=== PATIENT | female | born 1990 | race American Indian/Alaskan Native ===

== ENCOUNTER 2017-08-06 19:51 | Emergency (ER) | payer SELFPAY ==
[2017-08-06 20:34] LABS: Basophils # (Auto) 0.1 K/mm3 (0.0-0.1); Basophils % (Auto) 0.8 % (0.0-1.8); Eosinophils # (Auto) 0.1 K/mm3 (0.0-0.4); Eosinophils % (Auto) 1.6 % (0.0-4.3); Hematocrit 36.9 % (30.3-42.9); Hemoglobin 12.7 gm/dl (10.1-14.3); Lymphocytes # (Auto) 2.3 K/mm3 (1.2-5.4); Lymphocytes % (Auto) 33.9 % (13.4-35.0); Mean Corpuscular HGB Conc 34 % (30-34); Mean Corpuscular Hemoglobin 30 pg (28-32); Mean Corpuscular Volume 87 fl (79-97); Monocytes # (Auto) 0.4 K/mm3 (0.0-0.8); Monocytes % (Auto) 6.7 % (0.0-7.3); Platelet Count 210 K/mm3 (140-440); Red Blood Count 4.25 M/mm3 (3.65-5.03); Red Cell Distribution Width 13.6 % (13.2-15.2)
[2017-08-06 22:03] LABS: Bilirubin,Urine NEG (Negative); Blood,Urine LG (Negative); Color,Urine Red (Yellow); Urobilinogen,Urine < 2.0 mg/dL (<2.0)
[2017-08-06 22:04] LABS: RBC,Urine > 182.0 /HPF (0.0-6.0); WBC,Urine > 182.0 /HPF (0.0-6.0)
[2017-08-07 01:58] VITALS: BP 119/74
--- NOTE | 2017-08-07 02:23 | Emergency Department Report ---
ED Female HPI - General Chief complaint: Vaginal Bleeding Stated complaint: VAGINAL BLEEDING Time Seen by Provider: 08/07/17 02:14 Source: patient Mode of arrival: Ambulatory Limitations: No Limitations - History of Present Illness Initial comments: 27-year-old woman presents with vaginal bleeding onset today, approximately 8 hours prior to arrival. Onset was spontaneous, and she has used approximately 3 pads total. She has not had any fever chills or diaphoresis, denies flank pain or back pain. She had 1 episode of vaginal bleeding years ago, but this was associated with a spontaneous . She has had a tubal ligation, and does not feel like she is . She has not had any falls or injuries otherwise. She denies dysuria, no fever chills or diaphoresis. Health is good otherwise. MD Complaint: vaginal bleeding -: Sudden, This evening (8 hours earlier) Location: suprapubic, LLQ Radiation: non-radiating Severity: moderate Quality: dull, aching Consistency: constant Improves with: none Worsens with: none Are you Now?: No Last Menstrual Period: 07/20/17 (data proximal) EDC: 04/26/18 - Related Data Sexually active: Yes Previous Rx's Medication Instructions Recorded Last Taken Type HYDROcodone/APAP 5-325 [[place] 1 each PO Q6HR PRN #10 tablet 08/07/17 Unknown Rx 5/325] Sulfamethoxazole/Trimethoprim 1 each PO BID #14 tablet 08/07/17 Unknown Rx [Bactrim DS TAB] medroxyPROGESTERone ACETATE 10 mg PO QDAY #5 tablet 08/07/17 Unknown Rx [Provera] Allergies Allergy/AdvReac Type Severity Reaction Status Date / Time No Known Allergies Allergy Verified 08/07/17 03:24 ED Review of Systems ROS: Stated complaint: VAGINAL BLEEDING Other details as noted in HPI Comment: All other systems reviewed and negative Constitutional: no symptoms reported ENT: denies: ear pain, throat pain Respiratory: denies: cough, shortness of breath, wheezing Cardiovascular: denies: chest pain, palpitations Endocrine: no symptoms reported Gastrointestinal: denies: abdominal pain, nausea, vomiting, diarrhea Genitourinary: denies: urgency, dysuria, frequency, hematuria Musculoskeletal: denies: back pain, joint swelling, arthralgia Skin: denies: rash, lesions Neurological: denies: headache, weakness, paresthesias Psychiatric: denies: anxiety, depression ED Past Medical Hx - Past Medical History Previous Medical History?: No - Surgical History Past Surgical History?: Yes Additional Surgical History: X3 - Social History Smoking Status: Never Smoker Substance Use Type: None - Medications Home Medications: Home Medications Medication Instructions Recorded Confirmed Last Taken Type HYDROcodone/APAP 5-325 [[place] 1 each PO Q6HR PRN #10 tablet 08/07/17 Unknown Rx 5/325] Sulfamethoxazole/Trimethoprim 1 each PO BID #14 tablet 08/07/17 Unknown Rx [Bactrim DS TAB] medroxyPROGESTERone ACETATE 10 mg PO QDAY #5 tablet 08/07/17 Unknown Rx [Provera] ED Physical Exam - General Limitations: No Limitations General appearance: in no apparent distress - Head Head exam: Present: atraumatic - Eye Eye exam: Present: normal appearance, PERRL - ENT ENT exam: Present: normal exam - Neck Neck exam: Present: normal inspection - Cardiovascular Cardiovascular Exam: Present: regular rate, normal heart sounds - GI/Abdominal GI/Abdominal exam: Present: soft, tenderness (mild tenderness left lower quadrant, suprapubic area), normal bowel sounds. Absent: guarding, rebound, rigid - Rectal Rectal exam: Present: deferred - Back Exam Back exam: Present: normal inspection ED Course Vital Signs 08/06/17 08/06/17 08/07/17 19:58 20:05 01:57 Temperature 98.3 F 98.3 F Pulse Rate 52 L 52 L 54 L Respiratory 16 16 16 Rate Blood Pressure 131/70 131/70 Blood Pressure 119/74 [Left] O2 Sat by Pulse 98 98 99 Oximetry 08/07/17 01:59 Temperature Pulse Rate Respiratory 16 Rate Blood Pressure Blood Pressure [Left] O2 Sat by Pulse 99 Oximetry ED Medical Decision Making - Lab Data Result diagrams: 08/06/17 20:12 - Medical Decision Making Patient has acute onset of vaginal bleeding, with negative test, and good general health. This is likely differential uterine bleeding, will be treated with medroxyprogesterone acetate, and and patient will try to follow up with locker room clerk, preferring not to have ultrasound examination at this time. She also has a urinary tract infection and this will be treated with Bactrim. Analgesics also provided for mild discomfort. - Differential Diagnosis urinary tract infection with hematuria, dysfunctional uterine bleeding, lei Critical Care Time: No Critical care attestation.: If time is entered above; I have spent that time in minutes in the direct care of this critically ill patient, excluding procedure time. ED Disposition Clinical Impression: Vaginal bleeding, abnormal Urinary tract infection Qualifiers: Urinary tract infection type: acute cystitis Disposition: TO HOME OR SELFCARE Is pt being admited?: No Does the pt Need Aspirin: No Condition: Stable Instructions: Dysfunctional Uterine Bleeding (ED), Urinary Tract Infection in Women (ED) Additional Instructions: We are treating the bleeding with hormonal control, medroxyprogesterone, to be taken daily for the next 5 days. Have repeat examination with locker room clerk within the next 3-5 days. Return to the emergency department if he get much worse in the meantime. Prescriptions: HYDROcodone/APAP 5-325 [[place] 5/325] 1 each PO Q6HR PRN #10 tablet PRN Reason: Pain medroxyPROGESTERone ACETATE [Provera] 10 mg PO QDAY #5 tablet Sulfamethoxazole/Trimethoprim [Bactrim DS TAB] 1 each PO BID #14 tablet Referrals: PRIMARY CARE, [Primary Care Provider] - 3-5 Days PAUL THOMAS DRILL PRESSER [Advanced Practice Nurse] - 3-5 Days MARIO MENA MD [Staff Physician] - 3-5 Days Time of Disposition: 03:25
[2017-08-07] MEDS ORDERED: PROVERA PO SCH ×2 (03:31→10:00)
== END 2017-08-07 04:00 | disposition home or self-care (01) ==
LOC: ED 19:51
DX: N30.00 Acute cystitis without hematuria (principal); N93.9 Abnormal uterine and vaginal bleeding, unspecified; R79.89 Other specified abnormal findings of blood chemistry; Z98.51 Tubal ligation status
CPT/HCPCS: 36415; 81001; 82962; 84703; 85025; 86850; 86900; 86901; 99283

== ENCOUNTER 2020-07-01 08:32 | Emergency (ER) | payer MEDICAID ==
[2020-07-01] MEDS ORDERED: IBUPROFEN 400 MG TAB PO ONE ×2 (09:28→09:34)
[2020-07-01] MEDS ORDERED: ACETAMINOPHEN 325 MG TAB PO ONE (09:28)
--- NOTE | 2020-07-01 09:28 | Emergency Department Report ---
ED General Adult HPI - General Chief complaint: Earache Stated complaint: EAR PAIN PUI?: No Time Seen by Provider: 07/01/20 09:16 Source: patient, RN notes reviewed Mode of arrival: Ambulatory Limitations: No Limitations - History of Present Illness Initial comments: The patient was evaluated in the emergency department for symptoms described in the history of present illness. He/she was evaluated in the context of the global COVID-19 pandemic, which necessitated consideration that the patient might be at risk for infection with the virus that causes COVID-19. Institutional protocols and algorithms that pertain to the evaluation of patients at risk for COVID-19 are in a state of rapid change based on information released by regulatory bodies including the CDC and federal and state organizations. These policies and algorithms were followed during the patient's care in the emergency department. Please note that these policies, procedures and recommendations changed on a rapid basis. During the history and physical examination, I am chaperoned by ER field associate Mindy Herrera The patient is a 30-year-old female. She is not known to myself previously. She states that she is not . She presents to the ER with left external auditory canal pain, and bleeding. She thinks that she may have scratched the ear with one of her very long artificial nails. She also typically cleans her ears with wax. She denies other blunt and sudden head trauma, and denies all additional injuries and complaints. She specifically denies sudden thunderclap headache, neck pain, loss of vision, dizziness, ataxia. Her symptoms are much improved in the emergency room with Tylenol and ibuprofen. She had some anxiety initially, which is now resolved. -: Sudden Severity scale (0 -10): 10 Quality: aching Consistency: constant Improves with: medication Worsens with: movement (Palpation) - Related Data Previous Rx's Medication Instructions Recorded Last Taken Type Sulfamethoxazole/Trimethoprim 1 each PO BID #14 tablet 08/07/17 Unknown Rx [Bactrim DS TAB] medroxyPROGESTERone ACETATE 10 mg PO QDAY #5 tablet 08/07/17 Unknown Rx [Provera] Ciprofloxacin HCl/Dexameth 1 drop BID 5 Days #7.5 ml 07/01/20 Unknown Rx [Ciprodex Otic Suspension] Allergies Allergy/AdvReac Type Severity Reaction Status Date / Time No Known Allergies Allergy Verified 08/07/17 03:24 ED Review of Systems ROS: Stated complaint: EAR PAIN Other details as noted in HPI Constitutional: denies: fever Eyes: denies: eye discharge ENT: ear pain. denies: dental pain, hearing loss, epistaxis, congestion Respiratory: denies: cough Cardiovascular: denies: chest pain Gastrointestinal: denies: abdominal pain Neurological: headache Psychiatric: anxiety ED Past Medical Hx - Past Medical History Previous Medical History?: Yes Additional medical history: Report had a diagnosis of "borderline diabetes" - Surgical History Past Surgical History?: Yes Additional Surgical History: X3 - Social History Smoking Status: Never Smoker Substance Use Type: None - Medications Home Medications: Home Medications Medication Instructions Recorded Confirmed Last Taken Type Sulfamethoxazole/Trimethoprim 1 each PO BID #14 tablet 08/07/17 Unknown Rx [Bactrim DS TAB] medroxyPROGESTERone ACETATE 10 mg PO QDAY #5 tablet 08/07/17 Unknown Rx [Provera] Ciprofloxacin HCl/Dexameth 1 drop BID 5 Days #7.5 ml 07/01/20 Unknown Rx [Ciprodex Otic Suspension] ED Physical Exam - General Limitations: No Limitations General appearance: alert, anxious - Head Head exam: Present: atraumatic, normocephalic - Eye Eye exam: Present: normal appearance, PERRL, EOMI, nystagmus - ENT ENT exam: Present: normal exam, normal orophraynx, mucous membranes moist, nor mal external ear exam, other (There is no mastoid tenderness. The helix is nontender. The tragus is nontender. Erythematous/macerated tissue noted on the inferior aspect of the left external auditory canal. There is a small left- sided tympanic membrane effusion.) - Neck Neck exam: Present: normal inspection, full ROM. Absent: tenderness, meningismus, lymphadenopathy - Respiratory Respiratory exam: Present: normal lung sounds bilaterally. Absent: respiratory distress - Cardiovascular Cardiovascular Exam: Present: regular rate, normal rhythm, normal heart sounds. Absent: bradycardia, tachycardia, irregular rhythm, systolic murmur, diastolic murmur, rubs, gallop - GI/Abdominal GI/Abdominal exam: Present: soft. Absent: distended, tenderness, guarding, rebound, rigid, pulsatile mass - Extremities Exam Extremities exam: Present: normal inspection, full ROM, other (2+ pulses noted in the bilateral upper and lower extremities. There is no palpable cord. negative Homans sign. Muscular compartments are soft. The pelvis is stable.). Absent: pedal edema, calf tenderness - Back Exam Back exam: Present: normal inspection, full ROM. Absent: tenderness, CVA tenderness (R), CVA tenderness (L), paraspinal tenderness, vertebral tenderness - Neurological Exam Neurological exam: Present: alert, other (2+ pulses noted in the bilateral upper and lower extremities. There is no palpable cord. negative Homans sign. Muscular compartments are soft. The pelvis is stable.). Absent: motor sensory deficit - Psychiatric Psychiatric exam: Present: anxious - Skin Skin exam: Present: warm, dry, intact, normal color. Absent: rash ED Course Vital Signs 07/01/20 07/01/20 07/01/20 08:54 09:07 09:12 Temperature 98.9 F Pulse Rate 68 66 Respiratory 16 18 16 Rate Blood Pressure 134/64 Blood Pressure 107/70 [Left] O2 Sat by Pulse 97 99 Oximetry 07/01/20 10:03 Temperature Pulse Rate 52 L Respiratory 16 Rate Blood Pressure Blood Pressure 106/58 [Left] O2 Sat by Pulse 98 Oximetry ED Medical Decision Making - Lab Data Vital Signs 07/01/20 07/01/20 07/01/20 08:54 09:07 09:12 Temperature 98.9 F Pulse Rate 68 66 Respiratory 16 18 16 Rate Blood Pressure 134/64 Blood Pressure 107/70 [Left] O2 Sat by Pulse 97 99 Oximetry 07/01/20 10:03 Temperature Pulse Rate 52 L Respiratory 16 Rate Blood Pressure Blood Pressure 106/58 [Left] O2 Sat by Pulse 98 Oximetry - Medical Decision Making Differential diagnosis, including but not limited to: External auditory canal skin maceration, EAC chemical irritation, EAC mechanical irritation Assessment and plan: 30-year-old female with left external auditory canal maceration and minimal bleeding, in the context of scratching her ear canal with a long artificial nail, and using Q-tips at home. She denies sudden thunderclap headache and neck pain. She felt improved with Tylenol and ibuprofen, and is currently playing on her cellular phone. Patient advised to not clean ear canals with Q-tips, she should use mineral oil instead, and she is also counseled to be mindful of scratching her ears with her long nails. At the moment, she is resting comfortably in no acute distress, and suitable for discharge Critical care attestation.: If time is entered above; I have spent that time in minutes in the direct care of this critically ill patient, excluding procedure time. ED Disposition Clinical Impression: Auditory canal wound Qualifiers: Encounter type: initial encounter Laterality: left Qualified Code(s): S01.302A - Unspecified open wound of left ear, initial encounter Disposition: DC-01 TO HOME OR SELFCARE Is pt being admited?: No Does the pt Need Aspirin: No Condition: Stable Instructions: Skin Tear Additional Instructions: Please take care to not scratch or wound to the ears with long fingernails or sharp objects. In addition, recommend that ears not be cleaned with Q-tips. Recommend cleaning ears with minimal oil. We also recommend warm compresses as often as as needed for pain, patient may also take ibuprofen, 400 mg by mouth, with food, every 6 hours as needed for pain, alternating with Tylenol/acetaminophen, 650 mg by mouth, every 4-6 hours as needed for pain. Please follow-up with your primary care doctor or ENT physician for repeat checkup and evaluation within the next 7 to 10 days. For the patient's convenience, we have listed a local primary care doctor, Dr. Angy Anderson, and a local ENT physician, Dr. Jamie Veloz, patient may follow-up with either these individuals. Please return to the emergency room right away with new pain, worsened pain, migration of pain, projectile vomiting, change in mental status, confusion, inability to tolerate liquid feeds, new, worsened or different symptoms not present on the initial emergency room evaluation. Referrals: LAINEY FAIRCHILD MD [Referring] - 3-5 Days QUITA ANDERSON MD [Staff Physician] - 3-5 Days Forms: Work/School Release Form(ED)
[2020-07-01] MEDS ORDERED: ACETAMINOPHEN 325 MG TAB ONE (09:33)
[2020-07-01 10:04] VITALS: BP 106/58
== END 2020-07-01 10:38 | disposition home or self-care (01) ==
LOC: ED 08:32
DX: S01.302A Unspecified open wound of left ear, initial encounter (principal); Z79.899 Other long term (current) drug therapy; X58.XXXA Exposure to other specified factors, initial encounter; Y93.89 Activity, other specified; Y92.89 Other specified places as the place of occurrence of the external cause; Y99.8 Other external cause status
CPT/HCPCS: 99282

== ENCOUNTER 2020-09-21 18:50 | Emergency (ER) | payer MEDICAID ==
[2020-09-21 19:12] VITALS: BP 121/48
--- NOTE | 2020-09-21 19:32 | Emergency Department Report ---
Chief Complaint: Urogenital-Female Stated Complaint: VAGINAL DISCHARGE Time Seen by Provider: 09/21/20 19:30 - HPI History of Present Illness: Patient is a 30-year-old female presents emergency room with complaints of vaginal discharge that began 2 weeks ago. Patient states that she wants to have a full STD panel. She denies any dysuria, fever, nausea, vomiting, diarrhea, abdominal pain, pelvic pain. No past medical history. No allergies to medications. Vitals are stable On exam: Non toxic appearing, no acute distress atraumatic, normocephalic normal appearance of the eyes, EOMI, no periorbital edema or ecchymosis moist mucus membranes No respiratory distress, no accessory muscle use A&O x4, normal gait Patient is presenting for vaginal discharge for 2 weeks She denies any other associated symptoms She is not having any clinical signs or symptoms of UTI or PID at this time She is requesting a full STD panel Patient will be referred to the appropriate resources Discussed the importance of follow-up Discussed strict return precautions with patient Medical screening examination performed and there is no threat to life or limb at this time - Exam Vital Signs: Vital Signs 09/21/20 19:08 Temperature 99.2 F Pulse Rate 49 L Respiratory 16 Rate Blood Pressure 121/48 O2 Sat by Pulse 100 Oximetry MSE screening note: Focused history and physical exam performed. ED Disposition for MSE Clinical Impression: Vaginal discharge, Concern about STD in female without diagnosis Disposition: Z-07 MED SCREENING EXAM-LEFT Is pt being admited?: No Does the pt Need Aspirin: No Condition: Stable Additional Instructions: Please follow-up with the health department or clinic for full STD panel. Please have any partner tested and treated as well. Avoid sexual intercourse. Return to emergency room for any new or worsening symptoms. Marakana Address: [address] [place] [id number] Referrals: [facility] [Outside] - 2-3 Days Time of Disposition: 19:31 Print Language: MALTESE
[2020-09-21 19:40] LABS: Bacteria,Urine 1+ /HPF (Negative); Bilirubin,Urine NEG (Negative); Blood,Urine NEG (Negative); Color,Urine Yellow (Yellow); Mucus,Urine FEW /HPF; Protein,Urine <15 mg/dL mg/dL (Negative); Urobilinogen,Urine < 2.0 mg/dL (<2.0)
[2020-09-21 19:41] LABS: HCG Qualitative,Urine Negative (Negative)
== END 2020-09-21 19:37 | disposition left against medical advice (07) ==
LOC: ED 18:50
DX: N89.8 Other specified noninflammatory disorders of vagina (principal); Z20.2 Contact with and (suspected) exposure to infections with a predominantly sexual mode of transmission; Z53.21 Procedure and treatment not carried out due to patient leaving prior to being seen by health care provider
CPT/HCPCS: 81001; 81025

== ENCOUNTER 2021-11-28 10:00 | Emergency (ER) | payer MEDICAID ==
--- NOTE | 2021-11-28 12:39 | XRay Report ---
CHEST 2 VIEWS INDICATION / CLINICAL INFORMATION: chest pain. COMPARISON: None available. FINDINGS: SUPPORT DEVICES: None. HEART / MEDIASTINUM: No significant abnormality. LUNGS / PLEURA: No significant pulmonary or pleural abnormality. No pneumothorax. ADDITIONAL FINDINGS: No significant additional findings. IMPRESSION: 1. No acute findings. Signer Name: Armand Paredes Jr, MD Signed: 11/28/2021 12:35 PM Workstation Name: [id number]
--- NOTE | 2021-11-28 13:05 | Emergency Department Report ---
ED General Adult HPI - General Chief complaint: Chest Pain Stated complaint: CHEST PAIN,DIZZY Time Seen by Provider: 11/28/21 11:39 Source: patient Mode of arrival: Ambulatory Limitations: No Limitations - Related Data Previous Rx's Medication Instructions Recorded Last Taken Type Sulfamethoxazole/Trimethoprim 1 each PO BID #14 tablet 08/07/17 Unknown Rx [Bactrim DS TAB] medroxyPROGESTERone ACETATE 10 mg PO QDAY #5 tablet 08/07/17 Unknown Rx [Provera] Ciprofloxacin HCl/Dexameth 1 drop BID 5 Days #7.5 ml 07/01/20 Unknown Rx [Ciprodex Otic Suspension] Benzonatate [Tessalon Perles] 100 mg PO Q8HR PRN #30 cap 11/28/21 Unknown Rx guaiFENesin/CODEINE [Robitussin AC] 10 ml PO TID PRN #120 ml 11/28/21 Unknown Rx predniSONE [Deltasone] 50 mg PO DAILY 5 Days #5 tab 11/28/21 Unknown Rx Allergies Allergy/AdvReac Type Severity Reaction Status Date / Time No Known Allergies Allergy Verified 08/07/17 03:24 ED Review of Systems ROS: Stated complaint: CHEST PAIN,DIZZY Other details as noted in HPI ED Past Medical Hx - Past Medical History Previous Medical History?: No Additional medical history: Report had a diagnosis of "borderline diabetes" - Surgical History Past Surgical History?: No Additional Surgical History: X3 - Social History Smoking Status: Never Smoker - Medications Home Medications: Home Medications Medication Instructions Recorded Confirmed Last Taken Type Sulfamethoxazole/Trimethoprim 1 each PO BID #14 tablet 08/07/17 Unknown Rx [Bactrim DS TAB] medroxyPROGESTERone ACETATE 10 mg PO QDAY #5 tablet 08/07/17 Unknown Rx [Provera] Ciprofloxacin HCl/Dexameth 1 drop BID 5 Days #7.5 ml 07/01/20 Unknown Rx [Ciprodex Otic Suspension] Benzonatate [Tessalon Perles] 100 mg PO Q8HR PRN #30 cap 11/28/21 Unknown Rx guaiFENesin/CODEINE [Robitussin AC] 10 ml PO TID PRN #120 ml 11/28/21 Unknown Rx predniSONE [Deltasone] 50 mg PO DAILY 5 Days #5 tab 11/28/21 Unknown Rx ED Physical Exam - General Limitations: No Limitations ED Course Vital Signs 11/28/21 10:11 Temperature 98.8 F Pulse Rate 60 Respiratory 18 Rate Blood Pressure 109/34 [Left] O2 Sat by Pulse 99 Oximetry Critical care attestation.: If time is entered above; I have spent that time in minutes in the direct care of this critically ill patient, excluding procedure time. ED Disposition Clinical Impression: Chest wall pain, URI with cough and congestion Disposition: HOME / SELF CARE / HOMELESS Is pt being admited?: No Does the pt Need Aspirin: No Condition: Stable Instructions: Chest Wall Pain, [id number], Upper Respiratory Infection, Adult, [id number] Additional Instructions: Take medications as prescribed. Follow-up with primary care provider if no improvement or worsening symptoms. Return to the emergency department as needed. Prescriptions: predniSONE [Deltasone] 50 mg PO DAILY 5 Days #5 tab guaiFENesin/CODEINE [Robitussin AC] 10 ml PO TID PRN #120 ml PRN Reason: Cough Benzonatate [Tessalon Perles] 100 mg PO Q8HR PRN #30 cap PRN Reason: Cough Referrals: QUITA JAMES MD [Staff Physician] - 3-5 Days Forms: Work/School Release Form(ED) Time of Disposition: 13:06
[2021-11-28 13:22] VITALS: BP 112/48
--- NOTE | 2021-11-29 09:53 | Electrocardiograph Report ---
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
== END 2021-11-28 13:20 | disposition home or self-care (01) ==
LOC: ED 10:00
DX: J06.9 Acute upper respiratory infection, unspecified (principal); Z98.890 Other specified postprocedural states; Z79.899 Other long term (current) drug therapy
CPT/HCPCS: 71046; 93005; 99283